=== PATIENT | female | born 1985 | race Caucasian/White ===

== ENCOUNTER 2023-05-01 08:59 | Outpatient (CLI) | payer OTHER ==
--- NOTE | 2023-05-01 09:09 | CARDIAC PROCEDURE NOTE ---
Stress Test Report Service Date: 05/01/23 Service Time: 09:30 Ordering Provider: Lorin Flor ARNP, CFNP Indication for Test: Risk stratification in setting of concern for abnormal q waves on EKG. Significant Medical History: Rodrigo is referred for a treadmill stress echocardiogram today, that appears to have been ordered in the context of unexplained sinus tachycardia at a clinic visit, with an EKG that was interpreted as showing significant q waves in the inferior and lateral leads. She is also on Adderall, as well as sertraline, valacyclovir and a number of "brain health" supplements. She believes her cardiovascular health is good, as she walks a few times a week for exercise on a route that includes hills, without experiencing any exertional chest discomfort, disproportionate dyspnea or decreasing stamina. She also participates in more vigorous activities, such as snowboarding, without experiencing cardiovascular symptoms. Cardiac Risk Factors: Positive for intermittent nicotine use, with cigarette smoking of at most 1/4- 1/2 pack per day in prior years since age 19 and more recently, vaping at night; negative for hypertension, diabetes, known hyperlipidemia and family history of coronary artery disease. Type of Stress Test: ETT with Echocardiography Procedure: -Exercise Treadmill Test- After signing informed consent, the patient underwent echo imaging at rest and then performed treadmill exercise using a Rl protocol. The patient exercised for 8 minutes 57 secconds and achieved a peak heart rate of 185 (100 percent predicted maximum heart rate for age), and an estimated workload of 10.2 METS. The test was terminated due to fatigue/shortness of breath. Resting heart rate: 97 Peak heart rate: 185 Normal response to exercise. Resting BP: 132/85 Peak BP: 168/63 Normal response of systolic and diastolic BPs to exercise. Rhythm during exercise: Sinus rhythm throughout without ectopy. Symptoms: She denied experiencing any chest pressure/discomfort/pain. EKG at rest showed normal sinus rhythm with small, narrow Q waves in leads II, III, aVF and V4V6, which are not wide enough to be considered pathologic and likely represent normal septal depolarization. EKG at peak stress showed J-point depression with upsloping ST segments NOT meeting EKG diagnostic criteria for ischemia. In Recovery HR and BP rapidly/normally decreased towards baseline resting levels (HR 99, BP 140/80 at 5:00). Echo imaging, performed at rest and with stress, will be reported separately. IMatt MD, was present throughout this treadmill stress study and supervised it in its entirety. Summary: 1) Exercise tolerance about average for age and sex as evidenced by JEFFRY of 3%. 2) Normal resting EKG. 3) Adequate level of exercise was achieved on this treadmill stress test. 4) Normal BP response to exercise. 5) No ischemic changes by EKG criteria were seen at peak stress. 6) Echo image interpretation reveals normal left ventricular size, wall thickness and systolic function, with appropriate hyperdynamic augmentation of all segments with exercise, indicating no evidence of prior infarct or inducible ischemia. No significant valvular abnormality or elevation of estimated pulmonary artery systolic pressure seen on screening study. See separate report for more details. Conclusions and Recommendations: 1) Reassuring treadmill stress echocardiogram results, with normal resting heart rate (72 bpm prior to initiation of EKG monitoring) and hemodynamic response to exercise, with no symptom, EKG or echocardiographic evidence of inducible ischemia. 2) No recommendations for changes in care seem warranted.
[2023-05-01 09:15] LABS: BASOPHILS % (AUTO) 0.2 %; EOSINOPHILS # (AUTO) 0.2 10^3/uL (0.0-0.7); EOSINOPHILS % (AUTO) 3.6 %; HCT - HEMATOCRIT 38.9 % (37.0-47.0); HGB - HEMOGLOBIN 12.7 g/dL (12.0-16.0); LYMPHOCYTES # (AUTO) 2.1 10^3/uL (1.5-3.5); LYMPHOCYTES % (AUTO) 47.2 %; MEAN CORPUSCULAR HGB CONC 32.6 g/dL (32.0-36.0); MEAN CORPUSCULAR VOLUME 91.7 fL (81.0-99.0); MEAN PLATELET VOLUME 8.7 fL (7.9-10.8); MONOCYTES # (AUTO) 0.4 10^3/uL (0.0-1.0); NEUTROPHILS # (AUTO) 1.8 10^3/uL (1.5-6.6); NEUTROPHILS % (AUTO) 40.8 %; PLT - PLATELET COUNT 265 10^3/uL (130-450); RED BLOOD COUNT 4.24 10^6/uL (4.20-5.40); RED CELL DISTRIBUTION WIDTH 13.3 % (12.0-15.0); WHITE BLOOD COUNT 4.4 x10^3/uL (4.8-10.8)
[2023-05-01 09:36] LABS: ALBUMIN 4.2 g/dL (3.2-5.5); ALBUMIN/GLOBULIN RATIO 1.6 (1.0-2.2); BILIRUBIN,TOTAL 0.5 mg/dL (0.2-1.0); CALCIUM 9.3 mg/dL (8.5-10.3); CREATININE 0.8 mg/dL (0.6-1.3); POTASSIUM 3.7 mmol/L (3.5-4.5); TOTAL PROTEIN 6.9 g/dL (6.4-8.9)
[2023-05-01 09:51] LABS: THYROID STIMULATING HORMONE 1.77 uIU/mL (0.34-5.60)
== END 2023-05-01 09:00 | disposition home or self-care (01) ==
LOC: DI 08:59
PROVIDERS: ATTEND Nurse Practitioner Family
DX: R94.31 Abnormal electrocardiogram [ECG] [EKG] (principal); R00.0 Tachycardia, unspecified; F90.9 Attention-deficit hyperactivity disorder, unspecified type; F17.210 Nicotine dependence, cigarettes, uncomplicated; Z91.89 Other specified personal risk factors, not elsewhere classified
CPT/HCPCS: 36415; 80053; 84443; 85025; 93350